=== PATIENT | female | born 1950 | race Caucasian/White ===

== ENCOUNTER 2018-01-14 11:57 | Outpatient (CLI) | payer MEDICARE | END 2018-01-14 11:58 | disposition home or self-care (01) | LOC: BICULT 11:57 | PROVIDERS: ATTEND Psychiatry & Neurology Neurology | DX: I10 Essential (primary) hypertension (principal) | CPT/HCPCS: 76770 ==

== ENCOUNTER 2018-08-19 14:52 | Emergency (ER) | payer MEDICARE ==
[2018-08-19 15:32] LABS: #Basophils 0.1 thou/uL (0.0-0.2); #Eosinphils 0.2 thou/uL (0.0-0.7); #Lymphocytes 1.8 thou/uL (1.20-3.40); #Monocytes 0.4 thou/uL (0.11-0.59); #Neutrophils 4.3 thou/uL (1.40-6.50); %Basophils 0.9 % (0.0-1.0); %Eosinophils 2.7 % (0.0-10.0); %Lymphocytes 26.6 % (21.0-51.0); %Monocytes 5.9 % (0.0-10.0); %Neutrophils 63.9 % (42.0-75.0); Hemoglobin 12.7 g/dL (12.0-16.0); Mean Corpuscular HGB CONC 34.5 g/dL (32.0-36.0); Mean Corpuscular Volume 92.7 fL (78.0-98.0); Platelet Count 197 thou/uL (130-400); RBC Distribution Width 10.9 % (11.5-14.5); Red Blood Cell (RBC) Count 3.96 mill/uL (4.20-5.40); White Blood Cell (WBC) Count 6.7 thou/uL (4.8-10.8)
[2018-08-19 15:47] LABS: Bilirubin Small (Negative); Blood, Urine Negative (Negative); Clarity Slightly Cloudy (Clear); Glucose, Urine (Dipstick) Negative (Negative); Leukocyte Moderate (Negative); Nitrite Negative (Negative); Protein, Urine (Dipstick) 30 mg/dL (Neg-Trace); Specific Gravity, Urine 1.025 (1.005-1.030)
[2018-08-19 15:48] LABS: ALT (SGPT) 21 U/L (8-55); AST (SGOT) 25 U/L (5-34); Albumin 3.8 g/dL (3.4-4.8); Alkaline Phosphatase 88 U/L (40-150); Anion Gap 12 mmol/L (10-20); BUN (Urea Nitrogen) 18 mg/dL (9.8-20.1); Bilirubin, Total 0.5 mg/dL (0.2-1.2); CK (CPK) 300 U/L (29-168); CKMB 2.5 ng/mL (0-6.6); Calc. Creatinine Clearance 0 mL/min (70-130); Carbon Dioxide 27 mmol/L (23-31); Chloride 104 mmol/L (98-107); Estimated GFR-MDRD 67; Globulin 2.4 g/dL (2.4-3.5); Glucose 155 mg/dL (80-115); Lipase 18 U/L (8-78); Potassium 3.8 mmol/L (3.5-5.1); Protein, Total 6.2 g/dL (6.0-8.3); Sodium 139 mmol/L (136-145)
[2018-08-19 15:49] LABS: Bacteria/HPF 2+ HPF (None Seen); RBC/HPF 0-3 HPF (0-3); Squamous Epithelial 0-3 HPF (0-3)
--- NOTE | 2018-08-19 16:28 | CT ---
CT LUMBAR SPINE: Date: 08/19/18 PROVIDED CLINICAL HISTORY: Back pain. FINDINGS: There is slight retrolisthesis of L4 on L5 and L3 on L4. Lumbar alignment appears otherwise normal. V ertebral body heights are preserved. No evidence for fracture. Schmorl's node formation is seen at mu ltiple levels. Disc space narrowing and end plate degenerative changes are conspicuous at L2-3, L3-4, and L4-5. Lower lumbar spine facet arthritis is noted. No significant central canal stenosis is appa rent by CT. There is foraminal narrowing to the left of midline at L4-5 and L5-S1. There is potential for crowding/impingement of the traversing L5 and S1 nerve roots at these levels due to broad based disc bulge accompanying osteophyte and facet arthritis. The visualized extraspinal soft tissues demonstrate no acute abnormality. Vascular calcifications are seen. IMPRESSION: No evidence for an acute osseous abnormality. Degenerative changes as above. POS: OFF
== END 2018-08-19 16:22 | disposition home or self-care (01) ==
LOC: SCSER 14:52
DX: M54.5 Low back pain (principal); I10 Essential (primary) hypertension
CPT/HCPCS: 72131; 80053; 81003; 81015; 82550; 82553; 83690; 84484; 85025; 87077; 87086; 87186; 93005

== ENCOUNTER 2018-09-09 08:56 | Outpatient (CLI) | payer MEDICARE ==
[2018-09-09] MEDS ORDERED: Gadobenate Dimeglumine 529 MG/1 ML (20ML VIAL) ONE (09:00)
--- NOTE | 2018-09-09 15:06 | MRI ---
MRI BRAIN WITH AND WITHOUT CONTRAST: Technique: Multiplanar, multisequence MRI images were obtained of the brain. Indication: Gait abnormality. There is prior history of transverse myelitis. Comparison: 05-14-16 FINDINGS: Ventricles have normal size and position. There are nonspecific scattered white matter hyperintensiti es which are slightly more numerous than on the prior study but are most consistent with mild chronic ischemic white matter change in this age patient. There is no evidence of restricted diffusion. Ther e is no evidence of abnormal enhancement. The intracranial internal carotid arteries and proximal cerebral arteries show flow voids. Basilar ar rosemarie appears patent. Dural venous sinuses are patent. IMPRESSION: 1. Scattered white matter hyperintensities which are nonspecific but most consistent with mild chroni c ischemic white matter changes in this age patient. These are slightly more numerous than on the 201 6 study. 2. Otherwise unremarkable. POS: [facility]
--- NOTE | 2018-09-09 15:14 | MRI ---
MRI THORACIC SPINE WITH AND WITHOUT CONTRAST: INDICATIONS: Headache. History of transverse myelitis. COMPARISON: MRI thoracic spine, dated 05/14/2016. TECHNIQUE: Multiplanar, multisequential imaging of the thoracic spine obtained. Post contrast images were obtai jerrell with the administration of 13 mL of IV MultiHance. FINDINGS: The thoracic vertebrae maintain normal height and alignment. Disk spaces are maintained. Very mild degenerative changes in the thoracic spine. No orlin of thoracic disk protrusion or significant disk bulge. No evidence of central canal stenosis. The thoracic cord appears unremarkable. No abnormal enhancement seen. IMPRESSION: Unremarkable MRI of the thoracic spine. POS: [facility]
== END 2018-09-09 08:57 | disposition home or self-care (01) ==
LOC: SCSMRI 08:56
PROVIDERS: ATTEND Psychiatry & Neurology Neurology
DX: R26.9 Unspecified abnormalities of gait and mobility (principal); R90.82 White matter disease, unspecified
CPT/HCPCS: 70553; 72157; 82565; A9579